=== PATIENT | female | born 1935 | race African-American/Black ===

== ENCOUNTER 2017-05-16 08:19 | Day surgery (SDC) | payer MEDICARE ==
[~2017-05-16] VITALS: Ht 149.9 cm; Wt 60.8 kg
[~2017-05-16 08:19] MED LIST: ASPIRIN; CALCIUM MAGNESIUM; DHEA; ECHINACEA; FAMOTIDINE; FISH OIL; GABAPENTIN; GLOCOSAMINE; HCTZ; HYDR-1348; HYDROCODONE; METHOCARBAMOL; PANTOPROZOLE; PENTOXIFYLLINE; TRIAMTERENE; VITAMIN C; VITAMIN D; [UNRECOGNIZED DRUG - OTHER]
[2017-05-16] MEDS ORDERED: DONE5TAB33 PO (09:31)
[2017-05-16] MEDS ORDERED: LIDOCAINE HCL/PF 1% 10 MG/ML 5ML VIAL ONE (11:49)
[2017-05-16] MEDS ORDERED: IODIXANOL 320MG/ML 100 ML BOTTLE IV ONE (11:51)
[2017-05-16] MEDS ORDERED: FENTANYL CITRATE/PF 50MCG/ML 2ML VIAL ONE (11:53)
[2017-05-16] MEDS ORDERED: MIDAZOLAM HCL 2 MG/2 ML VIAL ONE (11:53)
[2017-05-16] MEDS ORDERED: HEPARIN SODIUM 1,000 UNIT/1ML VIAL IV ONE (13:41)
[2017-05-16] MEDS ORDERED: NITROGLYCERIN 50MCG/ML 10ML VIAL (CATH LAB) IV ONE (13:41)
[2017-05-16] MEDS ORDERED: PHENYLEPHRINE 100MCG/ML 10ML VIAL (CATH LAB) IV ONE (13:41)
== END 2017-05-16 16:20 | disposition home or self-care (01) ==
LOC: CCL 08:19
PROVIDERS: ATTEND Specialist
DX: I25.89 Other forms of chronic ischemic heart disease (principal); I10 Essential (primary) hypertension; F03.90 Unspecified dementia, unspecified severity, without behavioral disturbance, psychotic disturbance, mood disturbance, and anxiety; Z79.899 Other long term (current) drug therapy
CPT/HCPCS: 93458; 99152; C1769; C1887; C1893; J1644; J2250; J2370; J3010; J3490; Q9967